=== PATIENT | male | born 2000 | race Hispanic/Latino ===

== ENCOUNTER 2019-10-23 12:32 | Emergency (ER) | payer SELFPAY ==
[~2019-10-23] VITALS: Ht 182.9 cm; Wt 74.8 kg
[2019-10-23] MEDS ORDERED: LIDOCAINE HCL 1% LOCAL INJ 20 ML VIAL ONE (12:59)
== END 2019-10-23 13:23 | disposition home or self-care (01) ==
LOC: ER 12:32
DX: S61.213A Laceration without foreign body of left middle finger without damage to nail, initial encounter (principal); W29.3XXA Contact with powered garden and outdoor hand tools and machinery, initial encounter; Y92.008 Other place in unspecified non-institutional (private) residence as the place of occurrence of the external cause
CPT/HCPCS: 12001; 99283; J2001